=== PATIENT | female | born 1980 | race Caucasian/White ===

== ENCOUNTER → 2016-09-19 | Outpatient (CLI) | payer OTHER ==
--- NOTE | 2016-09-19 07:27 | US ---
EXAMINATION TYPE: US abdomen limited DATE OF EXAM: 09/19/2016 COMPARISON: NONE CLINICAL HISTORY: 36-year-old female R74.0 ELEV OF LEVELS OF TRANSAMINASE AND LACTIC ACID. Elevated L FT's, patient has no other complaints at this time. TECHNIQUE: Multiple sonographic images of the right upper quadrant are obtained. 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 CBD: 0.7 cm Right Kidney: 11.4 x 4.0 x 5.2 cm Pancreas: Only a small portion of the pancreatic body is seen. Remainder suboptimally visualized seco ndary to shadowing from bowel gas. Liver: Borderline enlarged, echogenic, and attenuating. This secondarily limits assessment for focal lesion. Gallbladder: Packed which shadowing calculi. This limits assessment for gallbladder distention or per icholecystic fluid. The gallbladder wall is measured at the upper limits of normal at 3.1 mm. Evidence for sonographic Sanchez's sign: No CBD: Appears to be dilated. Right Kidney: No hydronephrosis. IMPRESSION: 1. The bile duct appears dilated. Correlate with alkaline phosphatase and bilirubin levels to evaluat e for possible biliary obstruction. ERCP or MRCP if clinically indicated. 2. Numerous shadowing calculi packing the gallbladder lumen. 3. Borderline hepatomegaly with marked hepatic steatosis. Correlate with LFTs, lipid profile, and pat ient risk factors.
== END | disposition home or self-care (01) ==
LOC: RADUSWWP 06:50
PROVIDERS: ATTEND Family Medicine
DX: K80.20 Calculus of gallbladder without cholecystitis without obstruction (principal); R16.0 Hepatomegaly, not elsewhere classified; K76.0 Fatty (change of) liver, not elsewhere classified
CPT/HCPCS: 76705

== ENCOUNTER → 2016-10-04 | Outpatient (CLI) | payer OTHER ==
--- NOTE | 2016-10-04 09:20 | US ---
EXAMINATION TYPE: US gallbladder DATE OF EXAM: 10/04/2016 COMPARISON: Previous study dated 09/19/2016. CLINICAL HISTORY: K80 GALLSTONES. Known gb stones, obese EXAM MEASUREMENTS: Liver Length: 21.0 cm Gallbladder Wall: 0.2 cm CBD: 0.7 cm Right Kidney: 11.6 x 4.5 x 4.8 cm Pancreas: Obscured by bowel gas Liver: hepatomegaly, 3.3 x 2.7 x 3.4cm hypoechoic tissue--sparing at star Gallbladder: multiple shadowing mobile stones Evidence for sonographic Sanchez's sign: no CBD: dilated Right Kidney: wnl The pancreas is obscured. The liver is enlarged measuring 21 cm. The liver is echogenic and likely fatty infiltrated. There is areas of fatty sparing adjacent to the gallbladder fossa. There are multiple gallstones within the gallbladder. The gallbladder wall measures 2 mm. There is no evidence of a sonographic Sanchez's sign. This common hepatic duct measures 7 mm. This is enlarged in this age group. The right kidney is unremarkable. IMPRESSION: 1. HEPATOMEGALY AND FATTY INFILTRATION OF THE LIVER. 2. CHOLELITHIASIS. 3. DILATED COMMON HEPATIC DUCT. ERCP VERSUS MRCP WOULD BE SUGGESTED.
[2016-10-04 09:58] LABS: CHCM 33.8; HCT 42.4 % (34.0-46.0); HDW 2.38; HGB 13.9 gm/dL (11.4-16.0); MCH 30.1 pg (25.0-35.0); MCHC 32.7 g/dL (31.0-37.0); MCV 91.9 fL (80.0-100.0); Mean Platelet Volume 6.7; RBC 4.62 m/uL (3.80-5.40); RDW 12.8 % (11.5-15.5); WBC 7.3 k/uL (3.8-10.6)
[2016-10-04 10:06] LABS: ALT 77 U/L (9-52); AST 40 U/L (14-36); Alkaline Phosphatase 66 U/L (38-126); Amylase 47 U/L (30-110); Anion Gap 9 mmol/L; Blood Urea Nitrogen 10 mg/dL (7-17); Carbon Dioxide 26 mmol/L (22-30); Chloride 107 mmol/L (98-107); Glucose 82 mg/dL (74-99); Non-African American GFR(MDRD) >60 (>60 ml/min/1.73 sqM); Potassium 3.8 mmol/L (3.5-5.1); Sodium 142 mmol/L (137-145); Total Bilirubin 0.6 mg/dL (0.2-1.3); Total Protein 7.2 g/dL (6.3-8.2)
== END | disposition home or self-care (01) ==
LOC: RADUSWWP 08:53
PROVIDERS: ATTEND Surgery
DX: R16.0 Hepatomegaly, not elsewhere classified (principal); K76.0 Fatty (change of) liver, not elsewhere classified; K80.20 Calculus of gallbladder without cholecystitis without obstruction
CPT/HCPCS: 76705; 80053; 82150; 83690; 85027

== ENCOUNTER 2016-10-11 11:21 | Day surgery (SDC) | payer OTHER ==
[2016-10-04 13:28] VITALS: BMI 41.3
[~2016-10-11 11:21] MED LIST: DEXAMETHASONE SOD PHOSPHATE 10 MG/ML 1 ML VIAL IV ONE; FAMOTIDINE 20 MG/2 ML VIAL IV PRN; HEPARIN SODIUM,PORCINE 5,000 UNIT/ML 1 ML VIAL SQ ONE; LIDOCAINE 1% 20 ML VIAL (10MG/ML) FOR IV START INTRADERMA PRN; SCOPOLAMINE 1.5MG/72HR PATCH TRANSDERM ONE; ceFAZolin 2 GM in SODIUM CHLORIDE 0.9% 100 ML IVPB ONE
[2016-10-11] MEDS: LACTATED RINGERS 1,000 ML IV SCH ×2 (12:07→12:25)
[2016-10-11] MEDS ORDERED: PROPOFOL 10 MG/ML 20 ML VIAL IV ONE (12:50)
[2016-10-11] MEDS ORDERED: GLYCOPYRROLATE 0.2 MG/ML 2 ML VIAL ONE (12:50)
[2016-10-11] MEDS ORDERED: MIDAZOLAM 2 MG/2 ML VIAL ONE (12:50)
[2016-10-11] MEDS ORDERED: ROCURONIUM BROMIDE 10 MG/ML 10 ML VIAL IV ONE (12:50)
[2016-10-11] MEDS ORDERED: fentaNYL (PF) 50 MCG/ML 2 ML AMP ONE (12:50)
[2016-10-11] MEDS ORDERED: LIDOCAINE 1% INJ 10MG/ML (20 ML MDV) ONE (12:50)
[2016-10-11] MEDS ORDERED: SUCCINYLCHOLINE CHLORIDE 100 MG/5 ML SYR IV ONE (12:50)
[2016-10-11] MEDS ORDERED: ePHEDrine 50 MG/ML 1 ML AMP ONE (12:50)
[2016-10-11] MEDS ORDERED: BUPIVACAIN-EPI 0.25%-1:200,000 30 ML VIAL SQ ONE (13:23)
--- NOTE | 2016-10-11 14:38 | P.OP ---
Date of Procedure: 10/11/16 Preoperative Diagnosis: Chronic choelcystitis with cholelithiasis Postoperative Diagnosis: Chronic cholecystitis with cholelithiasis Procedure(s) Performed: Robot assisted laparoscopic cholecystectomy Implants: Anesthesia: DEBBIE Surgeon: Nataliya Bach Pathology: other Condition: stable Disposition: PACU Indications for Procedure: Operative Findings: Description of Procedure: Patient is a 36-year-old female who presented with right upper quadrant pain and a clinical diagnosis of chronic cholecystitis was made. After appropriate informed consent and answering all the patient's questions patient taken the operating placement position and given general anesthesia with endotracheal intubation. After an unsuccessful attempt to use the Veress needle for insufflation at the [place] point 5 mm optiview was used to enter the abominal cavity iunder direct vision. Once the abdomen insufflated to 18 mm Hg mm , Three 8 mm ports were then placed for the robot in the left upper quadrant and right upper quadrant. The 5 mm port was left in the left upper quadrant. A supraumbilical 12 mm port was also placed for the camera. Once ports were then placed the patient was placed in appropriate position of left side down and reverse Trendelenburg. The robot was docked and Prograsp was taken in arm 3, Cardiere was taken in arm 2. Camera was through the 12 mm umbilical port site. And a hook cautery was taken in the arm 1. Gallbladder was retracted cephalad and superiorly. Inflammatory adhesions were taken down with the help of electrocautery. Appropriate critical view was obtained in cystic duct and artery were isolated. 2 clips proximally and 1 distally were plced in the artery and cystic duct and then and transected sharply with the help of scissors. The gallbladder was then taken off the gallbladder fossa with the help of electrocautery. There was inadvertent hole in the gallbladder which resulted in leakage of bile. All that was sucked dry. The abdomen was thoroughly irrigated and sucked dry. Gallbladder was then placed in Endo Catch bag and removed through 12 port site after undocking the robot. Abdomen was then again visualized and completely irrigated and sucked dry. 12 mm port site was closed with the help of a Christian Piper under direct laparoscopic view using 0 PDS. At this point the procedure was terminated and all ports were removed. Local anesthesia infiltrated into the incisions skin was closed with 4 -0 Monocryl and Dermabond was applied. Patient is tolerated the porcedure well with no complications. She was extubated and taken to recovery room in stable condition. Plan - Discharge Summary New Discharge Prescriptions: No Action Levothyroxine Sodium [Synthroid] 100 mcg PO DAILY Loratadine 10 mg PO HS PRN PRN Reason: SEASONAL ALLERGIES Discharge Medication List Levothyroxine Sodium [Synthroid] 100 mcg PO DAILY 10/04/16 [History] Loratadine 10 mg PO HS PRN 10/04/16 [History]
[2016-10-11 15:01] VITALS: TEMP 98.2
[2016-10-11] MEDS ORDERED: KETOROLAC 30 MG/ML 1 ML VIAL IVP ONE (15:04)
[2016-10-11] MEDS: HYDROmorphone 1 MG/ML 1 ML SYRINGE IVP PRN ×2 (15:04→15:11)
[2016-10-11 15:18] VITALS: RESP 16
[2016-10-11 16:43] VITALS: BP 117/75; PULSE 95
[2016-10-11] MEDS ORDERED: HYDROcodone/APAP 5-325MG 1 EACH TAB PO ONE (16:44)
[2016-10-11] MEDS ORDERED: ONDANSETRON 4 MG/2 ML VIAL IVP ONE (16:45)
== END 2016-10-11 17:43 | disposition home or self-care (01) ==
LOC: OR 11:21
PROVIDERS: ATTEND Surgery
DX: K80.10 Calculus of gallbladder with chronic cholecystitis without obstruction (principal); E07.9 Disorder of thyroid, unspecified; Z79.899 Other long term (current) drug therapy
CPT/HCPCS: 81025; 88304; 47562; J2250; J1644; J1100; J0690; J2405; J2001; J3010; J1885; J1170; J0330; J2704

== ENCOUNTER → 2022-07-20 | Outpatient (CLI) | payer OTHER ==
[2022-07-20 15:24] VITALS: BP 137/86; PULSE 103; TEMP 98.9; BMI 47.7
--- NOTE | 2022-07-20 15:53 | P.HPBAR ---
Bariatric H&P - History & Physicial H&P Date: 07/20/22 History & Physicial: Visit/CC: new patient Patient initial contact: Initial weight: Initial weight in pounds: Height: 5 ft 6.25 in Initial BMI: Last weight: Current weight: 135.171 kg Current weight in pounds: 298.00 Current BMI: 47.7 [place] body weight (based on NIH guidelines): 59.534 kg Excess body weight loss: The patient is a 42 year-old F who presents for Bariatric Assessment. Looking into the sleeve. Tried no medications for weight loss. She has thyroid dysfunction. She is the only child. Paternal grandmother has obesity. No moderate back pain. Hop hip pain. NO knee pain. Has foot pain. No ankle pain. No moderate GERD. No dysphagia. Mom mom had stomach cancer and aunt. Dad had appendix cancer. EGD to check stomach. She denies moderate diarrhea. Colonoscopy. She needs mammogram. SHe is due for high risk colon cancer screen. Dad has hypertensive. Fairly. She has liver enzymes elevation. She does not have her gallbladder. She plans for divorce. Past Medical History Past Medical History: Thyroid Disorder Additional Past Medical History / Comment(s): PCOS, hx. HSV History of Any Multi-Drug Resistant Organisms: None Reported Past Surgical History: Cholecystectomy Past Anesthesia/Blood Transfusion Reactions: Previous Problems w/ Anesthesia, Motion Sickness Additional Past Anesthesia/Blood Transfusion Reaction / Comm: hard time waking up after cholecystectomy Past Psychological History: Anxiety, Depression, Panic Disorder Additional Psychological History / Comment(s): Hx. post depression. Currently going through a divorce Smoking Status: Never smoker Past Alcohol Use History: Rare Past Drug Use History: None Reported - Past Family History Father Family Medical History: Cancer Surgical - Exam Vital Signs Temp Pulse BP 98.9 F 103 H 137/86 07/20/22 15:16 07/20/22 15:16 07/20/22 15:16 Bariatric Checklist Checklist: Plan: Checklist: EGD: 1. Hiatal hernia: 2. H. Pylori: HgbA1c: Vitamin D: Smoking: Never smoker Primary care physician referral: TAMIKO Joe Psychiatry clearance: Cardiology clearance: Sleep study: Diet journal: VTE risk score: VTE risk level: Rehab needs at discharge:
== END ==
LOC: BARWHC3 14:31
PROVIDERS: ATTEND Surgery Plastic and Reconstructive Surgery
DX: E66.01 Morbid (severe) obesity due to excess calories (principal); Z68.42 Body mass index [BMI] 45.0-49.9, adult
CPT/HCPCS: 99212